=== PATIENT | male | born 1945 | race Hispanic/Latino ===

== ENCOUNTER → 2020-03-09 | Outpatient (CLI) | payer MEDICARE ==
--- NOTE | 2020-03-09 10:46 | Diagnostic Imaging Report ---
EXAM: Complete Abdominal Ultrasound INDICATION: ^ASCITES COMPARISON: None. TECHNIQUE: Transverse and longitudinal images of the upper abdomen were obtained. FINDINGS: Liver: Size: 11.1 cm in the right midclavicular line, normal Appearance: Course echogenicity, nodular contour Mass: No focal masses Spleen: Size: 13.2 cm in length, normal Echogenicity: Normal Mass: No focal masses Gallbladder: Stones/Sludge: None Wall: 0.5 cm Appearance: No pericholecystic fluid or hydrops. Sonographic Becker's Sign: Negative Bile Ducts: Intrahepatic Ducts: No dilatation Extrahepatic Ducts: Common bile duct measures 0.3 cm, no dilatation Pancreas: Suboptimally evaluated Right Kidney: Size: 11.2 x 5.2 x 4.7 cm Echogenicity: Normal Parenchymal thickness: Normal Collecting System: No hydronephrosis Stone: None Cyst/Mass: None Left Kidney: Size: 11.3 x 3.3 x 4.5 cm Echogenicity: Normal Parenchymal thickness: Normal Collecting System: No hydronephrosis Stone: None Cyst/Mass: None Vessels: Aorta: Suboptimally evaluated Inferior Vena Cava: Suboptimally evaluated Main Portal Vein: 0.6 cm, normal size with hepatopetal flow. Free Fluid: Large ascites. IMPRESSION: Cirrhosis with large ascites. Signed by: Navin De Dios MD on 03/09/2020 10:43 AM
--- NOTE | 2020-03-09 11:32 | Diagnostic Imaging Report ---
EXAMINATION: CHEST 2 VIEWS INDICATION: Chest pain COMPARISON: None FINDINGS: PA and lateral views TUBES and LINES: None. LUNGS: Lungs are well inflated. Mild right lower lobe linear atelectasis versus scarring. Lungs are otherwise clear. There is no evidence of pneumonia or pulmonary edema. PLEURA: Small left costophrenic sulcus pleural thickening. No pneumothorax. HEART AND MEDIASTINUM: The cardiomediastinal silhouette is unremarkable. BONES AND SOFT TISSUES: No acute osseous lesion. Soft tissues are unremarkable. UPPER ABDOMEN: No free air under the diaphragm. IMPRESSION: No acute thoracic radiographic abnormality. Signed by: Navin De Dios MD on 03/09/2020 11:28 AM
== END ==
LOC: US 09:47
PROVIDERS: ATTEND Family Medicine
DX: R18.8 Other ascites (principal); K74.60 Unspecified cirrhosis of liver; J44.9 Chronic obstructive pulmonary disease, unspecified
CPT/HCPCS: 71046; 76700